=== PATIENT | male | born 1970 | race Caucasian/White ===

== ENCOUNTER 2021-04-12 17:41 | Inpatient (IN) | payer SELFPAY ==
[2021-04-12 17:58] VITALS: BMI 21.4
[2021-04-12] MEDS: acetaminophen 325 mg Tablet 650 MG PO (20:27)
[2021-04-12] MEDS: OLANZapine 5 mg ODT PO (20:28)
[2021-04-12 21:34] VITALS: BP 116/73; PULSE 68; RESP 18; TEMP 37.2; O2SAT 98
[2021-04-13 05:57] VITALS: BP 102/69; PULSE 46; RESP 17; TEMP 36.8; O2SAT 98
--- NOTE | 2021-04-13 09:46 | PM.NHP ---
Providers/Chief Complaint Admitting Physician: Alison Toth DO Chief Complaint: 89 with law enforcement HPI NPU History of Present Illness PatientJohn Edwards is a 50 year old male with a longstanding history of alcohol use, depression with reported diagnoses of bipolar disorder although unable to provide any clear accounts of hypomanic or manic episodes outside the use of substances and alcohol presented to an [facility] emergency department with report of depression and suicidal ideation in the context of alcohol intoxication and homelessness. Outside facility lab work-up and medical clearance were reviewed and was unremarkable had a blood alcohol level of 185 mg/dL at the time of his emergency department evaluation. Patient continues to report intermittent depressive symptoms which she states causes impairment, denies any current suicidal ideation but reports intermittent suicidal thoughts particularly in the context of stressful situations and reports ongoing stresses of unstable living arrangement, recent break-up with girlfriend as well as financial stressors. He reports that he has had intermittent depressive symptoms since his early 20s with cutting behaviors with last cutting occurring within the last 4 to 5 months as well as multiple past suicide attempts by overdose with last attempt occurring 4 months ago. Patient reports that he had been on medication but states that he had stopped this medication sometime between a month to 2 months ago. Per above, no past history or reports of manic or hypomanic episodes outside the use of substances or alcohol. Denies any recent auditory hallucinations, denies any visual hallucinations, denies any delusions. Reports intermittent anxiety symptoms related to stressors. Denies any recent panic symptoms or panic attacks. Psychiatric review of systems is otherwise negative. Patient reports drinking alcohol on a daily basis and states that during these time periods that he typically does not eat much food, denies any current alcohol withdrawal symptoms and denies any history of complicated alcohol withdrawals. Review of Systems General: Reports: 10 or more systems reviewed and unremarkable except in HPI and below Meds NPU Allergies Allergy/AdvReac Type Severity Reaction Status Date / Time famotidine [From Pepcid] Allergy ALGY-Hives Verified 04/12/21 18:22 lamotrigine [From Lamictal] Allergy ALGY-Hives Verified 04/12/21 18:22 Penicillins Allergy ALGY-Rash Verified 04/12/21 18:22 [facility] NPU Other Psychiatric History: Other Psychiatric History: Reports first contact with mental health in his early 20s, reports history of chronic passive suicidal thoughts as well as cutting behavior, last contact with mental health was a couple months ago Reports multiple psychiatric hospitalizations, greater than 10 psychiatric hospitalizations with last psychiatric hospitalization occurring within the past 5 months Reports multiple past suicide attempts although describes them as gestures to include overdose attempts as well as attempts of cutting his wrist, patient also reports longstanding self-harm behavior with no intent of ending his life Mental Status Exam MSE Comments: Appears older than stated age, thin, unkempt long hair, initially shirtless but then puts on chart while sitting up for interview, calm, cooperative, polite, interactive, good eye contact Psychomotor activity is neither increased or decreased, no agitation Speech is normal rate and volume, spontaneous, clear articulation, not pressured I feel okay, full range of affect, not labile Alert and oriented to person, place, time, situation Memory concentration appear to be intact per interview Intellectual functioning appears to be average at best based on the [facility] interview Thought process, linear, no flight of ideas, no looseness of associations Thought content, no delusions, no hallucinations, no suicidal or homicidal ideation Insight and judgment appear to be fair to intact Vitals/I&O/Wt Last Vital Signs Temp 98.2 F 04/13/21 05:57 Pulse 46 L 04/13/21 05:57 Resp 17 04/13/21 05:57 BP 102/69 04/13/21 05:57 Pulse Ox 98 04/13/21 05:57 Weight last 48 hrs Weight 62.142 kg Weight 62.142 kg A&P Assessment and plan (1) Suicidal ideation: Status: Acute (2) Depressive disorder: Status: Acute (3) Anxiety disorder: Status: Acute Qualifiers: Anxiety disorder type: unspecified anxiety disorder Qualified Code(s): F41.9 - Anxiety disorder, unspecified (4) Alcohol dependence: Status: Acute Qualifiers: Substance use status: uncomplicated Qualified Code(s): F10.20 - Alcohol dependence, uncomplicated Additional A&P Information 50-year-old male with longstanding history of chronic, passive suicidal ideation with intermittent depressive symptoms in the context of daily alcohol use and history of polysubstance abuse currently reporting intermittent depressive symptoms with no active suicidal ideation in the context of multiple ongoing life stressors. Patient would benefit from starting a low-dose antidepressant while coordinating for safe discharge to include resources for alcohol counseling. INVOLUNTARY ADMIT to inpatient psychiatry START fluoxetine 10 mg daily targeting depressive and anxiety symptoms START thiamine 100 mg daily as well as multivitamin daily for history of alcohol dependence Encouraged patient to participate in unit activities to include group sessions, unit milieu Coordinate with social media sr strategy manager for post discharge mental health care follow-up Involuntary Hold Information 96 Hour Hold: 96 Hour Involuntary Admission: Yes 96 Hour Hold Ending Date: 04/18/21 96 Hour Hold Ending Time: 18:00 Attestations NPU Medical Necessity Statement*: Psychiatric hospitalization is indicated for medication stabilization, coordination for safe discharge Anticipate hospital stay to exceed 2 midnights Time Spent in Patient Care: Greater than 35 minutes (>than 50% of time spent in counselling and/or direct pt care on unit). Coding Level of Care Code Acute [employer] Specialist for [facility] Fwd Diagnoses Suicidal ideation R45.851 Depressive disorder F32.9 Anxiety disorder F41.9 Anxiety disorder type: unspecified anxiety disorder Alcohol dependence F10.20 Substance use status: uncomplicated
[2021-04-13 10:13] LABS: Basophils # 0.1 10^3/uL (0.0-0.1); Basophils % 0.7 %; Eosinophils # 0.3 10^3/uL (0.0-0.8); Eosinophils % 2.6 %; Hematocrit 44.5 % (42.0-52.0); Hemoglobin 15.3 g/dL (11.7-16.6); Lymphocytes % 20.8 %; Mean Corpuscular HGB Conc 34.4 g/dL (30.0-36.0); Mean Corpuscular Hemoglobin 31.5 pg (28.0-34.0); Mean Corpuscular Volume 91.6 fL (80-94); Mean Platelet Volume 10.8 fL (7.4-10.4); Monocytes # 0.7 10^3/uL (0.2-0.9); Monocytes % 7.6 %; Neutrophils # 6.56 10^3/uL (1.8-7.7); Neutrophils % 67.8 %; Nucleated Red Blood Cells % 0 %; Platelet Count 174 10^3/cmm (130-400); Red Blood Count 4.86 10^6/uL (4.1-5.3); Red Cell Distribution Width 12.9 % (12.1-15.1); White Blood Count 9.7 10^3/uL (4.0-10.0)
[2021-04-13 10:26] LABS: Alanine Aminotransferase 15 U/L (0-41); Albumin Level 3.7 g/dL (3.5-5.2); Alkaline Phosphatase 40 IU/L (40-130); Anion Gap 12.3 (5-19); Aspartate Amino Transferase 22 U/L (0-40); Blood Urea Nitrogen 14 mg/dL (6-20); Calcium 8.6 mg/dL (8.5-10.5); Carbon Dioxide 29 mmol/L (22-29); Chloride 104 mmol/L (98-107); Globulin 2.1 g/dL (1.3-4.6); Glomerular Filtration Rate 143.2 mL/min (90-130); Glucose 77 mg/dL (65-115); Osmolality Calculated 291 mOsm/kg (285-295); Potassium 4.3 mmol/L (3.5-5.1); Sodium 141 mmol/L (136-145); Total Bilirubin 0.2 mg/dL (0.15-1.2); Total Protein 5.8 g/dL (6.6-8.7)
[2021-04-13] MEDS: fluoxetine 10 mg Capsule PO (10:50)
[2021-04-13] MEDS: multivitamin therapeutic Tablet 1 TAB PO (10:50)
[2021-04-13] MEDS: thiamine 100 mg Tablet PO (10:50)
[2021-04-13 14:00] VITALS: BP 102/69; PULSE 60; RESP 17; TEMP 36.8; O2SAT 98
[2021-04-13 14:11] VITALS: BP 102/69; PULSE 60; RESP 17; TEMP 36.8; O2SAT 98
[2021-04-13] MEDS: nicotine 2 mg Gum BUCCAL ×2 (14:47→17:16)
[2021-04-13] MEDS: OLANZapine 5 mg ODT PO (15:57)
[2021-04-13] MEDS: acetaminophen 325 mg Tablet 650 MG PO (19:24)
[2021-04-13] MEDS: trazodone 50 mg Tablet PO (20:18)
[2021-04-13 21:41] VITALS: BP 114/81; BP 120/84; PULSE 55; PULSE 73; RESP 18; TEMP 36.6; O2SAT 95
[2021-04-14 06:00] VITALS: BP 96/60; PULSE 54; RESP 17; TEMP 36.6; O2SAT 97
[2021-04-14] MEDS: thiamine 100 mg Tablet PO (08:58)
[2021-04-14] MEDS: fluoxetine 10 mg Capsule PO (08:58)
[2021-04-14] MEDS: multivitamin therapeutic Tablet 1 TAB PO (08:58)
--- NOTE | 2021-04-14 09:59 | P.PN_ITS ---
Subjective NPU Subjective: Interval history: Denies any depressed symptoms, denies any suicidal ideation Reports tolerating medication well with no medication side effects Patient reports ongoing stressors which exacerbate his depressive symptoms intermittently Denies any interval auditory hallucinations, denies any visual hallucinations, denies any delusions Per staff report, no interval behavioral disturbances Mental Status Exam MSE Comments: Sitting up on his bed, calm, cooperative, better Than previous evaluation, appropriately dressed in hospital scrubs, good eye contact Psychomotor activity is neither increased or decreased, no agitation Speech is normal rate and volume, spontaneous, clear articulation, not pressured I feel pretty good, full range of affect, not labile Alert and oriented to person, place, time, situation Memory concentration appear to be intact per interview Thought process, linear, no flight of ideas, no looseness of associations Thought content, no delusions, no hallucinations, no suicidal or homicidal ideation Insight and judgment appear to be fair to intact Vitals/I&O/Wt Last Vital Signs Temp 97.9 F 04/14/21 06:00 Pulse 54 L 04/14/21 06:00 Resp 17 04/14/21 06:00 BP 96/60 04/14/21 06:00 Pulse Ox 97 04/14/21 06:00 Weight last 48 hrs Weight 62.142 kg Weight 62.142 kg Data NPU : 04/13/21 09:50 04/13/21 09:50 A&P Assessment and plan (1) Suicidal ideation: Status: Acute (2) Depressive disorder: Status: Acute (3) Alcohol dependence: Status: Acute Qualifiers: Substance use status: uncomplicated Qualified Code(s): F10.20 - Alcohol dependence, uncomplicated (4) Anxiety disorder: Status: Acute Qualifiers: Anxiety disorder type: unspecified anxiety disorder Qualified Code(s): F41.9 - Anxiety disorder, unspecified Involuntary Hold Information 96 Hour Hold: 96 Hour Involuntary Admission: Yes 96 Hour Hold Ending Date: 04/18/21 96 Hour Hold Ending Time: 18:00 Attestations NPU Medical Necessity Statement*: Continues to require psychiatric hospitalization for medication stabilization Coding Level of Care Code Acute [employer] Upholsterer for [facility] Fwd Diagnoses Suicidal ideation R45.851 Depressive disorder F32.9 Alcohol dependence F10.20 Substance use status: uncomplicated Anxiety disorder F41.9 Anxiety disorder type: unspecified anxiety disorder
[2021-04-14] MEDS: acetaminophen 325 mg Tablet 650 MG PO ×2 (13:39→19:37)
[2021-04-14] MEDS: OLANZapine 5 mg ODT PO (13:40)
[2021-04-14] MEDS: nicotine 2 mg Gum BUCCAL ×3 (13:42→18:40)
[2021-04-14 14:00] VITALS: BP 101/69; PULSE 66; RESP 16; TEMP 37.5; O2SAT 94
[2021-04-14] MEDS: hyDROXYzine 25 mg Capsule 50 MG PO (21:42)
[2021-04-14] MEDS: trazodone 50 mg Tablet PO (21:42)
--- NOTE | 2021-04-14 21:43 | PC.NURSE ---
Addendum entered by Breanna Zapata RN 04/15/21 00:49: 2300 Pt is not anxious and he is sleeping Original Note: PRN's Trazodone 50mg PO for inability to sleep Visteril 50mg PO given for anxiety pt is setting off the anxiety level. Will observe pt for change
[2021-04-14 22:00] VITALS: BP 98/74; PULSE 62; RESP 18; TEMP 37.2; O2SAT 94
[2021-04-15 06:00] VITALS: BP 111/68; PULSE 68; RESP 16; TEMP 36.7; O2SAT 98
[2021-04-15] MEDS: multivitamin therapeutic Tablet 1 TAB PO (09:12)
[2021-04-15] MEDS: fluoxetine 10 mg Capsule 20 MG PO (09:12)
[2021-04-15] MEDS: thiamine 100 mg Tablet PO (09:13)
[2021-04-15] MEDS: acetaminophen 325 mg Tablet 650 MG PO (11:35)
--- NOTE | 2021-04-15 12:05 | PM.NPN ---
Subjective NPU Subjective: Interval history: Reports transient depressive symptoms but overall states that he has been feeling better, no interval suicidal ideation Reports some difficulty with sleep but states he feels rested today Reports that his appetite has been improving States that he has been compliant with his medication, denies any medication side effects Per staff report, no interval behavioral disturbances Mental Status Exam MSE Comments: Standing in the unit hallway, polite, interactive, appropriately groomed and dressed, good eye contact Psychomotor activity is neither increased or decreased, no agitation Speech is normal rate and volume, spontaneous, clear articulation, not pressured I feel good, full range of affect, smiles appropriately at times during interview, not labile Alert and oriented to person, place, time, situation Memory concentration appear to be intact per interview Thought process, linear, no flight of ideas, no looseness of associations Thought content, no delusions, no hallucinations, no suicidal or homicidal ideation Insight and judgment appear to be fair to intact Vitals/I&O/Wt Last Vital Signs Temp 98.1 F 04/15/21 06:00 Pulse 68 04/15/21 06:00 Resp 16 04/15/21 06:00 BP 111/68 04/15/21 06:00 Pulse Ox 98 04/15/21 06:00 Data NPU : 04/13/21 09:50 04/13/21 09:50 A&P Assessment and plan (1) Suicidal ideation: Status: Acute (2) Depressive disorder: Status: Acute (3) Alcohol dependence: Status: Acute Qualifiers: Substance use status: uncomplicated Qualified Code(s): F10.20 - Alcohol dependence, uncomplicated (4) Anxiety disorder: Status: Acute Qualifiers: Anxiety disorder type: unspecified anxiety disorder Qualified Code(s): F41.9 - Anxiety disorder, unspecified Additional A&P Information Reports transient depressive symptoms but overall improving, denies any medication side effects INCREASE to fluoxetine 40 mg daily targeting depressive and anxiety symptoms Continue to monitor Involuntary Hold Information 96 Hour Hold: 96 Hour Involuntary Admission: Yes 96 Hour Hold Ending Date: 04/18/21 96 Hour Hold Ending Time: 18:00 Attestations NPU Medical Necessity Statement*: Continues to require psychiatric hospitalization for medication stabilization Coding Level of Care Code Acute Er Medical Technician for [facility] Fwd Diagnoses Suicidal ideation R45.851 Depressive disorder F32.9 Alcohol dependence F10.20 Substance use status: uncomplicated Anxiety disorder F41.9 Anxiety disorder type: unspecified anxiety disorder
[2021-04-15 14:00] VITALS: BP 111/68; PULSE 68; RESP 16; TEMP 36.7; O2SAT 98
[2021-04-15 16:09] VITALS: BP 106/74; PULSE 67; RESP 18; TEMP 36.4; O2SAT 95
[2021-04-15] MEDS: OLANZapine 5 mg ODT PO (17:17)
[2021-04-15] MEDS: nicotine 2 mg Gum BUCCAL (18:41)
[2021-04-15 19:49] VITALS: BP 107/71; PULSE 67; RESP 18; TEMP 37.8; O2SAT 96
[2021-04-15] MEDS: hyDROXYzine 25 mg Capsule 50 MG PO (21:12)
--- NOTE | 2021-04-15 21:15 | PC.NURSE ---
pt given vistaril 50mg po for increased anxiety per pt request.
--- NOTE | 2021-04-15 22:31 | PC.NURSE ---
pt resting quietly with both eyes closed
[2021-04-16] MEDS: thiamine 100 mg Tablet PO (08:22)
[2021-04-16] MEDS: fluoxetine 20 mg Capsule 40 MG PO (08:22)
[2021-04-16] MEDS: multivitamin therapeutic Tablet 1 TAB PO (08:22)
--- NOTE | 2021-04-16 10:00 | PC.NURSE ---
Addendum entered by Tammy Gonzalez RN 04/16/21 14:37: Patient currently denies headache at this time. Original Note: Patient up at nurses station requesting Tylenol for headache
[2021-04-16] MEDS: acetaminophen 325 mg Tablet 650 MG PO ×2 (10:04→18:01)
--- NOTE | 2021-04-16 12:54 | PM.NPN ---
Subjective NPU Subjective: Interval history: Denies any interval depressive symptoms, denies any interval suicidal ideation Continues report some difficulty initiating sleep but states that he was able to fall asleep and feels rested this morning Reports being compliant with his medication, denies any medication side effects Per staff report, no interval behavioral disturbances Mental Status Exam MSE Comments: Sitting up on his bed, calm, cooperative, appropriately groomed and dressed, good eye contact Psychomotor activity is neither increased or decreased, no agitation Speech is normal rate and volume, spontaneous, clear articulation, not pressured Okay, full range of affect, not labile Alert and oriented to person, place, time, situation Memory concentration appear to be intact per interview Thought process, linear, no flight of ideas, no looseness of associations Thought content, no delusions, no hallucinations, no suicidal or homicidal ideation Insight and judgment appear to be fair to intact Vitals/I&O/Wt Last Vital Signs Temp 100.0 F H 04/15/21 19:49 Pulse 67 04/15/21 19:49 Resp 18 04/15/21 19:49 BP 107/71 04/15/21 19:49 Pulse Ox 96 04/15/21 19:49 Data NPU : 04/13/21 09:50 04/13/21 09:50 A&P Assessment and plan (1) Suicidal ideation: Status: Acute (2) Depressive disorder: Status: Acute (3) Alcohol dependence: Status: Acute Qualifiers: Substance use status: uncomplicated Qualified Code(s): F10.20 - Alcohol dependence, uncomplicated (4) Anxiety disorder: Status: Acute Qualifiers: Anxiety disorder type: unspecified anxiety disorder Qualified Code(s): F41.9 - Anxiety disorder, unspecified Additional A&P Information Improving CONTINUE current medication, continue to monitor Coordinate with social insurance adviser for post discharge mental health care follow-up Involuntary Hold Information 96 Hour Hold: 96 Hour Involuntary Admission: Yes 96 Hour Hold Ending Date: 04/18/21 96 Hour Hold Ending Time: 18:00 Attestations NPU Medical Necessity Statement*: Continues to require psychiatric hospitalization for medication stabilization, coordination for safe discharge Coding Level of Care Code Acute Configuration Management Architect for [facility] Fwd Diagnoses Suicidal ideation R45.851 Depressive disorder F32.9 Alcohol dependence F10.20 Substance use status: uncomplicated Anxiety disorder F41.9 Anxiety disorder type: unspecified anxiety disorder
[2021-04-16 13:49] VITALS: BP 97/63; PULSE 64; RESP 16; TEMP 37.1; O2SAT 95
--- NOTE | 2021-04-16 14:00 | PC.NURSE ---
Addendum entered by Tammy Gonzalez RN 04/16/21 14:37: Patient resting at this time. Original Note: Patient at nurses station requesting something for anxiety.
[2021-04-16] MEDS: OLANZapine 5 mg ODT PO (14:02)
--- NOTE | 2021-04-16 18:02 | PC.NURSE ---
Patient requested some Tylenol for headache. reports pain 5/10
[2021-04-16] MEDS: hyDROXYzine 25 mg Capsule 50 MG PO (20:21)
[2021-04-16 20:59] VITALS: BP 99/70; PULSE 60; RESP 20; TEMP 36.9; O2SAT 94
--- NOTE | 2021-04-16 22:59 | PC.NURSE ---
at 2050, pt requested anxiety med. pt noted pacing in dayroom wanting to go out to the courtyard. vistaril 50mg po given.
--- NOTE | 2021-04-16 23:01 | PC.NURSE ---
pt in room resting quietly with both eyes closed at this time.
[2021-04-17 06:00] VITALS: BP 117/83; PULSE 69; RESP 21; TEMP 36.8; O2SAT 98
[2021-04-17] MEDS: fluoxetine 20 mg Capsule 40 MG PO (08:06)
[2021-04-17] MEDS: multivitamin therapeutic Tablet 1 TAB PO (08:06)
[2021-04-17] MEDS: thiamine 100 mg Tablet PO (08:06)
--- NOTE | 2021-04-17 08:23 | PM.NDC ---
Diagnoses at Discharge Discharge Diagnosis (1) Suicidal ideation: Status: Acute (2) Depressive disorder: Status: Acute (3) Alcohol dependence: Status: Acute Qualifiers: Substance use status: uncomplicated Qualified Code(s): F10.20 - Alcohol dependence, uncomplicated (4) Anxiety disorder: Status: Acute Qualifiers: Anxiety disorder type: unspecified anxiety disorder Qualified Code(s): F41.9 - Anxiety disorder, unspecified Reason for Visit Reason for Visit: 96 with law enforcement Hospital Course Hospital Course 50 year old male with a longstanding history of alcohol use, depression with reported diagnoses of bipolar disorder although unable to provide any clear accounts of hypomanic or manic episodes outside the use of substances and alcohol presented to an [facility] emergency department with report of depression and suicidal ideation in the context of alcohol intoxication and homelessness. Patient was continued to endorse some depressive symptoms and initially some intermittent passive suicidal thoughts but quickly subsided with no subsequent suicidal ideation and improvement of his depressive symptoms after initiating fluoxetine which was titrated up to 40 mg daily with no reports of any medication side effects. Patient participate in unit milieu to include group sessions with no reports of any behavioral disturbances. Patient was not suicidal and was not endorsing any psychiatric symptoms at the time of discharge and did not appear to pose an imminent threat to himself or others. Low to moderate risk of harm to self given no current suicidal ideation and no current endorsement of any psychiatric symptoms although his risk may remain elevated if he continues to use substances and alcohol and is noncompliant with his medication and medication management follow-up leading to unexpected, impulsive behavior. Risk mitigation included psychiatric hospitalization, medication stabilization, recommendation to abstain from the use of substances and alcohol as well as the need for compliance with his medication, medication management and alcohol/substance counseling/treatment the development of more adaptive coping strategies. Patient was able to communicate his understanding of the need to abstain from the use of substances and alcohol as well as the need for compliance with the above treatment recommendations to include substance counseling/treatment in order to further mitigate his risk of harm to self and others. Involuntary Hold Information 96 Hour Hold: 96 Hour Involuntary Admission: Yes 96 Hour Hold Ending Date: 04/18/21 96 Hour Hold Ending Time: 18:00 Mental Status Exam MSE Comments: Standing at the nurses station, polite, interactive, cooperative, appropriately groomed and dressed, good eye contact Psychomotor activity is neither increased or decreased, no agitation Speech is normal rate and volume, spontaneous, clear articulation, not pressured Good, full range of affect, smiles appropriate times during interview, not labile Alert and oriented to person, place, time, situation Memory concentration appear to be intact per interview Thought process, linear, no flight of ideas, no looseness of associations Thought content, no delusions, no hallucinations, no suicidal or homicidal ideation Insight and judgment appear to be fair to intact Discharge Data Vitals: Last Vital Signs Temp 98.2 F 04/17/21 06:00 Pulse 69 04/17/21 06:00 Resp 21 H 04/17/21 06:00 BP 117/83 04/17/21 06:00 Pulse Ox 98 04/17/21 06:00 Discharge Plan Discharge Patient Disposition: Home Condition: Stable Prescriptions: New fluoxetine 20 mg Capsule 40 mg PO DAILY Qty: 30 RF: 0 Vitamin B-1 (mononitrate) 100 mg Tablet 100 mg PO DAILY Qty: 30 RF: 0 Discharge Orders: Discharge Order (Routine); Ordered 04/17/21 Ordered By: Alison Toth Discharge Diet: Regular Discharge Activity: Resume usual activity Patient Instructions: Opioid Safety Discharge Attestations NPU Time Spent in Discharge Care*: greater than 30 min Status at Discharge: Cognitive status at discharge: cognitively intact, Behavioral status at discharge: cooperative, Functional status at discharge: independent ambulation Overall status at discharge: patient is back to baseline Coding Level of Care Code Acute [facility] [place] note Diagnoses Suicidal ideation R45.851 Depressive disorder F32.9 Alcohol dependence F10.20 Substance use status: uncomplicated Anxiety disorder F41.9 Anxiety disorder type: unspecified anxiety disorder
[2021-04-17 08:24] VITALS: BP 117/83; PULSE 69; RESP 21; TEMP 36.8; O2SAT 98
== END 2021-04-17 10:11 | disposition home or self-care (01) | DRG 881 ==
LOC: ER 17:53 → NP 19:14 → ER 04-13 12:02 → NP 04-13 12:03
PROVIDERS: Admitting Provider Psychiatry & Neurology Psychiatry; Emergency Provider Family Medicine; Visit Provider Psychiatry & Neurology Psychiatry
DX: F32.9 Major depressive disorder, single episode, unspecified (principal); R45.851 Suicidal ideations; F41.9 Anxiety disorder, unspecified; F10.20 Alcohol dependence, uncomplicated; Z91.5 Personal history of self-harm; Z59.0 Homelessness
CPT/HCPCS: 80053; 85025; 99285

== ENCOUNTER 2021-06-17 20:44 | Inpatient (IN) | payer SELFPAY ==
[2021-06-17 22:07] VITALS: BMI 20.2
[2021-06-17] MEDS: OLANZapine 5 mg ODT PO (22:44)
[2021-06-17] MEDS: trazodone 50 mg Tablet PO (22:44)
[2021-06-17 22:55] VITALS: BP 112/83; PULSE 91; RESP 18; TEMP 36.4; O2SAT 98
[2021-06-18 05:19] VITALS: BMI 20.2
[2021-06-18 06:00] VITALS: BP 97/68; RESP 18; TEMP 36.6
[2021-06-18] MEDS: folic acid 1 mg Tablet PO (08:19)
[2021-06-18] MEDS: multivitamin therapeutic Tablet 1 TAB PO (08:19)
[2021-06-18] MEDS: fluoxetine 20 mg Capsule PO (08:19)
[2021-06-18] MEDS: thiamine 100 mg Tablet PO (08:19)
[2021-06-18] MEDS: hyDROXYzine 25 mg Capsule 50 MG PO ×2 (12:02→21:27)
--- NOTE | 2021-06-18 12:24 | PC.NURSE ---
Patient requesting something for anxiety. PRN medication administered.
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
[2021-06-18 14:02] VITALS: BP 93/71; PULSE 73; RESP 16; TEMP 36.6; O2SAT 97
[2021-06-18] MEDS: nicotine 2 mg Gum BUCCAL (14:14)
[2021-06-18] MEDS: OLANZapine 5 mg ODT PO (16:52)
[2021-06-18] MEDS: trazodone 50 mg Tablet PO (21:28)
--- NOTE | 2021-06-18 21:30 | PC.NURSE ---
PT REQUESTED SLEEP AND ANXIETY MEDS, TRAZODONE 50MG PO FOR SLEEP AND VISTARIL 50MG PO FOR ANXIETY GIVEN.
[2021-06-18 21:50] VITALS: BP 103/71; PULSE 54; RESP 17; TEMP 37; O2SAT 96
--- NOTE | 2021-06-18 23:18 | PC.NURSE ---
PT RESTING QUIETLY WITH BOTH EYES CLOSED.
[2021-06-19 06:00] VITALS: BP 90/56; PULSE 78; RESP 15; TEMP 36.8; O2SAT 95
[2021-06-19] MEDS: folic acid 1 mg Tablet PO (08:20)
[2021-06-19] MEDS: multivitamin therapeutic Tablet 1 TAB PO (08:20)
[2021-06-19] MEDS: thiamine 100 mg Tablet PO (08:20)
[2021-06-19] MEDS: sertraline 50 mg Tablet PO (08:20)
[2021-06-19] MEDS: OLANZapine 5 mg ODT PO (13:03)
--- NOTE | 2021-06-19 13:03 | PC.NURSE ---
Addendum entered by Delliah Muñoz LPN 06/19/21 14:35: PRN MED EFFECTIVE NO FURTHER C/O AGITATION Original Note: PRN ZYPREXA ZYDIS 5 MG GIVEN PO PER PT C/O AGITATION. PT UPSET HE GOT A ROOM MATE.
[2021-06-19 14:00] VITALS: BP 96/61; PULSE 67; RESP 17; TEMP 36.9; O2SAT 96
--- NOTE | 2021-06-19 17:14 | P.PN_ITS ---
Subjective NPU Subjective: Interval history: John presents today reporting that he is doing okay with the Zoloft. He reports that he is made multiple calls to places in the [facility]. He filled out an application for 1 program and is awaiting results. Had a lot of questions around the mother this marketing copywriter would require him to complete his hold in its entirety or not. We discussed the risk benefits and alternatives of restarting Depakote and he understood agreed to proceed as documented in this note Mental Status Exam MSE Comments: This is a slender white male in hospital scrubs with adequate grooming and eye contact. No abnormal movements except for mild psychomotor retardation. Cooperative with exam in no acute distress. Speech was more normal rate and volume. Mood described as little better, affect subdued. Thought process organized. Thought content: Patient denied suicidal or homicidal ideation, he endorsed having some paranoia but seemed less guarded, he says he does occasionally have perceptual disturbances but currently denied any auditory or visual hallucinations. Attention and concentration appeared intact and memory was mostly reliable but none were formally tested. He is alert and oriented x3. Insight and judgment appear fair impulse control is limited, but improving. Vitals/I&O/Wt Last Vital Signs Temp 98.6 F 06/19/21 20:41 Pulse 79 06/19/21 20:41 Resp 20 H 06/19/21 20:41 BP 124/89 06/19/21 20:41 Pulse Ox 94 06/19/21 20:41 A&P Additional A&P Information (1) Depressive disorder: (2) Alcohol dependence: (3) Anxiety disorder: (4) Partner relational problem: (5) Homeless: Additional A&P Information This is a 50-year-old white male with a long history of mental health issues, depression, anxiety, trauma and addiction with continued active alcohol use as a primary challenge who presents from outside hospital with suicidal thinking and wanting to resume treatment. 1. Continue current medication. Start Depakote 500 mg p.o. daily for support of his abstinence and isolation. 2. Continue every 15 minute checks for safety. 3. Encourage individual, group and milieu therapies. 4. Encourage sober living treatment after discharge at the highest level of care to which he is willing to commit. 5. We will await response about placement in sober living program. Involuntary Hold Information 96 Hour Hold: 96 Hour Involuntary Admission: Yes 96 Hour Hold Ending Date: 06/20/21 96 Hour Hold Ending Time: 20:54 Attestations NPU Medical Necessity Statement*: Inpatient hospitalization is medically necessary and the clinically appropriate intervention at this time. We will monitor medications and make changes as indicated. Patient will be in the hospital for over two midnights. Likely length of stay 1-3 days. Coding Level of Care Code Acute Investor Relations Analyst for Walter Wyman
[2021-06-19 20:41] VITALS: BP 124/89; PULSE 79; RESP 20; TEMP 37; O2SAT 94
[2021-06-19] MEDS: trazodone 50 mg Tablet PO (21:37)
[2021-06-19] MEDS: hyDROXYzine 25 mg Capsule 50 MG PO (21:37)
--- NOTE | 2021-06-19 21:45 | PC.NURSE ---
pt requested anxiety and sleep meds. vistaril 50mg po for anxiety and trazodone 50mg po for sleep given.
--- NOTE | 2021-06-19 23:00 | PC.NURSE ---
pt resting quietly with both eyes closed.
[2021-06-20 06:00] VITALS: BP 108/70; PULSE 63; RESP 17; TEMP 37; O2SAT 98
[2021-06-20] MEDS: divalproex DR 500 mg Tablet PO (08:59)
[2021-06-20] MEDS: folic acid 1 mg Tablet PO (08:59)
[2021-06-20] MEDS: thiamine 100 mg Tablet PO (08:59)
[2021-06-20] MEDS: sertraline 50 mg Tablet PO (08:59)
[2021-06-20] MEDS: multivitamin therapeutic Tablet 1 TAB PO (09:00)
[2021-06-20] MEDS: nicotine 2 mg Gum BUCCAL ×2 (11:26→13:33)
--- NOTE | 2021-06-20 12:22 | NPU.GN ---
[facility] Topic: Depression Bingo / Worrisome thoughts General Mood of Group: John did not attend group today
[2021-06-20] MEDS: OLANZapine 5 mg ODT PO (13:32)
--- NOTE | 2021-06-20 13:34 | PC.NURSE ---
Zyprexa Zydis 5 mg sublingual administered for P/O of increasing agitation. Nurse will monitor for medication effectiveness.
[2021-06-20 14:00] VITALS: BP 116/74; PULSE 72; RESP 18; TEMP 37.1; O2SAT 94
--- NOTE | 2021-06-20 16:50 | PM.NPN ---
Subjective NPU Subjective: Interval history: John presents today reporting that he is doing better he feels. He was able to reach out to the previous program in [place] and they are able to take him back after saying they could not. We discussed the risk benefits and alternatives of discharging him the morning and he understood and agreed proceed as documented in his note. He reports an optimism about being able to do better this time and get back to being more functional and sober. Mental Status Exam MSE Comments: This is a slender white male in hospital scrubs with adequate grooming and eye contact. No abnormal movements. Cooperative with exam in no acute distress. Speech was more normal rate and volume. Mood described as better, affect congruent. Thought process organized. Thought content: Patient denied suicidal or homicidal ideation, there were no delusions reported or noted, he denied any auditory or visual hallucinations. Attention and concentration appeared intact and memory was mostly reliable but none were formally tested. He is alert and oriented x3. Insight and judgment appear fair impulse control is improving. Vitals/I&O/Wt Last Vital Signs Temp 97.7 F 06/20/21 22:00 Pulse 79 06/20/21 22:00 Resp 18 06/20/21 22:00 BP 104/72 06/20/21 22:00 Pulse Ox 97 06/20/21 22:00 A&P Additional A&P Information (1) Depressive disorder: (2) Alcohol dependence: (3) Anxiety disorder: (4) Partner relational problem: (5) Homeless: Additional A&P Information This is a 50-year-old white male with a long history of mental health issues, depression, anxiety, trauma and addiction with continued active alcohol use as a primary challenge who presents from outside hospital with suicidal thinking and wanting to resume treatment. 1. Continue current medication. Start Depakote 500 mg p.o. daily for support of his abstinence and isolation. 2. Continue every 15 minute checks for safety. 3. Encourage individual, group and milieu therapies. 4. Encourage sober living treatment after discharge at the highest level of care to which he is willing to commit. 5. He was accepted back in the previous program he has attended and we discussed discharge in the morning. Involuntary Hold Information 96 Hour Hold: 96 Hour Involuntary Admission: Yes 96 Hour Hold Ending Date: 06/20/21 96 Hour Hold Ending Time: 20:54 Attestations NPU Medical Necessity Statement*: Inpatient hospitalization is medically necessary and the clinically appropriate intervention at this time. We will monitor medications and make changes as indicated. Likely length of stay 1-2 days. Coding Level of Care Code Acute Visual Supervisor for Walter Wyman
[2021-06-20] MEDS: trazodone 50 mg Tablet PO (20:58)
[2021-06-20] MEDS: hyDROXYzine 25 mg Capsule 50 MG PO (20:58)
--- NOTE | 2021-06-20 21:00 | PC.NURSE ---
pt requested sleep and anxiety meds at HS. Trazodone 50mg po for sleep and vistaril 20mg po given.
[2021-06-20 22:00] VITALS: BP 104/72; PULSE 79; RESP 18; TEMP 36.5; O2SAT 97
--- NOTE | 2021-06-20 22:00 | PC.NURSE ---
pt resting quietly with both eyes closed.
[2021-06-21 06:00] VITALS: BP 115/75; PULSE 64; RESP 18; TEMP 36.6; O2SAT 96
[2021-06-21] MEDS: multivitamin therapeutic Tablet 1 TAB PO (09:17)
[2021-06-21] MEDS: divalproex DR 500 mg Tablet PO (09:17)
[2021-06-21] MEDS: folic acid 1 mg Tablet PO (09:17)
[2021-06-21] MEDS: sertraline 50 mg Tablet PO (09:17)
[2021-06-21] MEDS: nicotine 2 mg Gum BUCCAL (09:18)
[2021-06-21] MEDS: thiamine 100 mg Tablet PO (09:18)
--- NOTE | 2021-06-21 11:45 | NPU.GN ---
[facility] Topic: Self Medicating General Mood of Group: John appeared in good spirits and participated in group. CSS asked John if he self medicated and he said yes with Alcohol and I like to drink too. CSS asked John if he felt this affected others and he said yes it used to but now it's just me. John said he was going to be discharged today and he planned to try and get help from [facility]. CSS encouraged John to stick to plan and believe things can change. CSS suggested that John try to find something positive to replace the alcohol.
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
[2021-06-21 12:48] VITALS: BP 115/75; PULSE 64; RESP 18; TEMP 36.6; O2SAT 96
== END 2021-06-21 13:30 | disposition home or self-care (01) | DRG 881 ==
PROVIDERS: Admitting Provider Psychiatry & Neurology Psychiatry; Visit Provider Psychiatry & Neurology Psychiatry
DX: F32.9 Major depressive disorder, single episode, unspecified (principal); F41.9 Anxiety disorder, unspecified; F10.20 Alcohol dependence, uncomplicated; F17.210 Nicotine dependence, cigarettes, uncomplicated; Z63.0 Problems in relationship with spouse or partner; Z59.0 Homelessness; Z88.0 Allergy status to penicillin